=== PATIENT | female | born 1955 | race American Indian/Alaskan Native ===

== ENCOUNTER 2017-03-25 02:30 | Emergency (ER) | payer MEDICAID, OTHER ==
[2017-03-25 02:36] VITALS: BMI 25.0
--- NOTE | 2017-03-25 02:46 | ED PDOC ---
Arrival/HPI - General Chief Complaint: Back Pain Time Seen by Provider: 03/25/17 02:43 Historian: Patient - History of Present Illness Narrative History of Present Illness (Text): 03/25/17 02:46 Taya Guzman is a 61 year old female, whose past medical history includes tubal ligation, UTI, hypertension, and asthma, who presents to the Emergency department complaining of waking from sleep with suprapubic discomfort tonight. Patient reports associated dysuria. Patient denies any fever, chills, chest pain , shortness of breath, nausea, vomiting, diarrhea, neck pain, headache, dizziness, or any other complaints. Symptom Onset: Gradual Symptom Course: Unchanged Activities at Onset: Light Context: Home Past Medical History - Provider Review Nursing Documentation Reviewed: Yes - Infectious Disease Hx of Infectious Diseases: None - Tetanus Immunization Tetanus Immunization: Up to Date - Past Medical History Past Medical History: No Previous - Cardiac Hx Pacemaker: No - Pulmonary Hx Respiratory Disorders: Yes Hx Asthma: Yes - Neurological Hx Paralysis: No - HEENT Hx HEENT Disorder: No Hx Blind: No Hx Cataracts: No Hx Deafness: No Hx Difficulty Chewing: No Hx Epistaxis: No Hx Glaucoma: No Hx Macular Degeneration: No - Renal Hx Renal Failure: No - Endocrine/Metabolic Hx Hyperthyroidism: No Hx Hypothyroidism: No - Hematological/Oncological Hx Blood Transfusions: No Hx Blood Transfusion Reaction: No - Integumentary Hx Dermatological Disorder: No Hx Basal Cell Carcinoma: No Hx Eczema: No Hx Melanoma: No Hx Psoriasis: No Hx Squamous Cell Carcinoma: No - Musculoskeletal/Rheumatological Hx Musculoskeletal Disorders: Yes - Gastrointestinal Hx Crohn's Disease: No Hx Diverticulitis: No Hx Gastroesophageal Reflux: No Hx Gastrointestinal Ulcer: No Hx Liver Failure: No - Genitourinary/Gynecological Hx Sexually Transmitted Diseases: No - Psychiatric Hx Emotional Abuse: No Hx Physical Abuse: No Hx Substance Use: No - Past Surgical History Past Surgical History: No Previous - Surgical History Hx Amputation: No Hx Appendectomy: No Hx Cardiac Catheterization: No Hx Cholecystectomy: No Hx Coronary Stent: No Hx Gastric Bypass Surgery: No Hx Hysterectomy: No Hx Joint Replacement: No Hx Kidney Transplant: No Hx Liver Transplant: No Hx Mastectomy: No Hx Open Heart Surgery: No Hx Orthopedic Surgery: No Hx Splenectomy: No Hx Tubal Ligation: Yes Hx Valve Replacement: No - Anesthesia Hx Anesthesia Reactions: No Hx Malignant Hyperthermia: No - Suicidal Assessment Feels Threatened In Home Enviroment: No Family/Social History - Physician Review Nursing Documentation Reviewed: Yes Family/Social History: Unknown Family HX Smoking Status: Light Smoker < 10 Cigarettes Daily Hx Alcohol Use: Yes (QUIT 10 WEEKS AGO; PAST USE EXCESSIVE) Hx Substance Use: No Substance used: Cocaine Hx Substance Use Treatment: No Allergies/Home Meds Allergies/Adverse Reactions: Allergies Sulfa (Sulfonamide Antibiotics) Allergy (Verified 07/26/15 15:31) ANAPHYLAXIS terbinafine HCl [From Lamisil] Allergy (Verified 07/26/15 15:31) HEADACHE Home Medications: Home Meds Medication Instructions Recorded Confirmed Clonazepam 1 mg PO DAILY 12/31/14 03/25/17 Tramadol HCl [Ultram] 25 mg PO Q8H PRN 07/26/15 03/25/17 Acetaminophen with Codeine 1 each PO PRN PRN 01/09/16 03/25/17 [Tylenol with Codeine #3 Tablet] Metoprolol Tartrate [Lopressor] 50 mg PO BID 01/09/16 03/25/17 Review of Systems - Physician Review All systems were reviewed & negative as marked: Yes - Review of Systems Constitutional: Normal. absent: Fevers Eyes: Normal ENT: Normal Respiratory: Normal. absent: SOB, Cough Cardiovascular: Normal. absent: Chest Pain Gastrointestinal: Abdominal Pain (+suprapubic discomfort). absent: Diarrhea Genitourinary Female: Dysuria. absent: Frequency, Hematuria, Urine Output Changes Musculoskeletal: Normal. absent: Back Pain, Neck Pain Skin: Normal. absent: Rash Neurological: Normal. absent: Headache, Dizziness Endocrine: Normal Hemo/Lymphatic: Normal Psychiatric: Normal Physical Exam Vital Signs Reviewed: Yes Vital Signs Temp Pulse Resp BP Pulse Ox 03/25/17 04:00 98.2 F 76 18 132/82 100 03/25/17 02:39 85 20 132/98 H 99 Temperature: Afebrile Blood Pressure: Normal Pulse: Regular Respiratory Rate: Normal Appearance: Positive for: Well-Appearing, Non-Toxic, Comfortable Pain Distress: None Mental Status: Positive for: Alert and Oriented X 3 - Systems Exam Head: Present: Atraumatic, Normocephalic Pupils: Present: PERRL Extroacular Muscles: Present: EOMI Conjunctiva: Present: Normal Mouth: Present: Moist Mucous Membranes Neck: Present: Normal Range of Motion Respiratory/Chest: Present: Clear to Auscultation, Good Air Exchange. No: Respiratory Distress, Accessory Muscle Use Cardiovascular: Present: Regular Rate and Rhythm, Normal S1, S2. No: Murmurs Abdomen: Present: Normal Bowel Sounds. No: Tenderness, Distention, Peritoneal Signs Back: Present: Normal Inspection. No: CVA Tenderness, Midline Tenderness, Paraspinal Tenderness Upper Extremity: Present: Normal Inspection. No: Cyanosis, Edema Lower Extremity: Present: Normal Inspection. No: Edema Neurological: Present: GCS=15, CN II-XII Intact, Speech Normal Skin: Present: Warm, Dry, Normal Color. No: Rashes Psychiatric: Present: Alert, Oriented x 3, Normal Insight, Normal Concentration Medical Decision Making ED Course and Treatment: 03/25/17 02:46 Impression: 61 year old female complaining of suprapubic discomfort and dysuria tonight Differential Diagnosis included but are not limited to: UTI Plan: -- Labs, lipase -- Urinalysis, urine cultures -- Reassess and disposition Prior Visits: Notes and results from previous visits were reviewed. On 10/11/2015, pt was seen in the Emergency department for anxiety, requesting anxiety medication refill. Pt was eloped from ER. Progress Notes: 03/25/17 04:20 On reevaluation the patient feels better and is in no acute distress. I have discussed the results and plan with the patient, who expresses understanding. Patient given the opportunity to ask question, all questions were answered and there is agreement with the plan to discharge the patient home. Patient is stable for discharge. Patient was instructed to follow up with physician/clinic in 1-2 days or return if symptoms persist/worsen or new concerning symptoms arise. - Lab Interpretations Lab Results: 03/25/17 02:50 03/25/17 02:50 Lab Results 03/25/17 02:50: WBC 8.2 D, RBC 4.20, Hgb 12.8, Hct 38.4, MCV 91.4, MCH 30.5, MCHC 33.3, RDW 13.2, Plt Count 375, MPV 9.7 03/25/17 02:50: Sodium 138, Potassium 3.5 L, Chloride 104, Carbon Dioxide 26, Anion Gap 12, BUN 13, Creatinine 1.0, Est GFR ( Amer) > 60, Est GFR (Non- Af Amer) 57, Random Glucose 96, Calcium 10.0, Total Bilirubin 0.7, AST 35, ALT 36, Alkaline Phosphatase 75, Total Protein 7.6, Albumin 4.3, Globulin 3.3, Albumin/Globulin Ratio 1.3, Lipase 175 03/25/17 02:42: Urine Color Yellow, Urine Appearance Sl cloudy, Urine pH 6.0, Ur Specific [place] <= 1.005, Urine Protein Negative, Urine Glucose (UA) Negative, Urine Ketones Negative, Urine Blood Large H, Urine Nitrate Positive H , Urine Bilirubin Negative, Urine Urobilinogen 0.2, Ur Leukocyte Esterase Large H, Urine RBC 2 - 5, Urine WBC 15 - 20, Ur Epithelial Cells 0 - 2, Urine Bacteria Mod I have reviewed the lab results: Yes - Medication Orders Current Medication Orders: Discontinued Medications Ceftriaxone Sodium (Rocephin 1 Gram Ivpb) 1 gm in 100 mls @ 200 mls/hr IV ONCE STA PRN Reason: Protocol Stop: 03/25/17 04:39 Ketorolac Tromethamine (Toradol) 30 mg IVP ONCE ONE Stop: 03/25/17 03:00 Last Admin: 03/25/17 03:12 Dose: 30 mg MAR Pain Assessment Document 03/25/17 03:12 AB (Rec: 03/25/17 03:14 [id number]) Pain Reassessment Is this a pain reassessment? Yes Sleep Is patient sleeping during reassessment? No Presence of Pain Presence of Pain Yes Pain Scale Used Pain Scale Used Numeric Location Upper or Lower Lower Pain Location Body Site Abdomen Description Description Constant Intensity of Pain at present 7 Pain Behavior Guarding Irritability Aggravating Factors ADL's Alleviating Factors/Management Medication Techniques Alleviating Factors Medication IVP Administration Document 03/25/17 03:12 AB (Rec: 03/25/17 03:14 [id number]) Charges for Administration # of IVP Administrations 1 - Scribe Statement The provider has reviewed the documentation as recorded by the Sina Diaz Provider Scribe Attestation: All medical record entries made by the Scribe were at my direction and personally dictated by me. I have reviewed the chart and agree that the record accurately reflects my personal performance of the history, physical exam, medical decision making, and the department course for this patient. I have also personally directed, reviewed, and agree with the discharge instructions and disposition. Disposition/Present on Arrival - Present on Arrival Any Indicators Present on Arrival: No History of DVT/PE: No History of Uncontrolled Diabetes: No Urinary Catheter: No History of Decub. Ulcer: No History Surgical Site Infection Following: None - Disposition Have Diagnosis and Disposition been Completed?: Yes Diagnosis: UTI (urinary tract infection) Disposition: HOME/ ROUTINE Disposition Time: 04:20 Patient Plan: Discharge Patient Problems: Current Active Problems Problem Status Onset UTI (urinary tract infection) Acute Condition: GOOD Discharge Instructions (ExitCare): Urinary Tract Infection in Women (ED) Additional Instructions: Drink plenty of liquids/take meds as prescribed/follow up with your doctor this week Prescriptions: Cephalexin [cephalexin] 500 mg PO BID #10 cap Phenazopyridine [Pyridium] 200 mg PO TID #15 tab Tramadol HCl [Ultram] 50 mg PO Q6 PRN #12 tab PRN Reason: Pain, Moderate (4-7) Forms: [facility] (Maori)
[2017-03-25 02:55] LABS: URINE BILIRUBIN NEGATIVE (NEGATIVE); URINE BLOOD LARGE (NEGATIVE); URINE GLUCOSE (UA) NEGATIVE (NEGATIVE); URINE KETONE NEGATIVE (NEGATIVE); URINE LEUKOCYTE ESTERASE LARGE Leu/uL (NEGATIVE); URINE PROTEIN NEGATIVE mg/dL (<30 mg/dL); URINE UROBILINOGEN 0.2 E.U./dL (<1 E.U./dL)
[2017-03-25 02:58] LABS: URINE APPEARANCE SL CLOUDY (CLEAR); URINE COLOR YELLOW (YELLOW)
[2017-03-25 03:16] LABS: URINE BACTERIA MOD (NEG); URINE EPITHELIAL CELLS 0 - 2 /hpf (0-5); URINE WBC 15 - 20 /hpf (0-6)
[2017-03-25 03:16] LABS: ALB/GLOB RATIO 1.3 (1.1-1.8); ALKALINE PHOSPHATASE 75 U/L (38-126); ALT/SGPT 36 U/L (7-56); AST/SGOT 35 U/L (14-36); BILIRUBIN,TOTAL 0.7 mg/dL (0.2-1.3); BLOOD UREA NITROGEN 13 mg/dL (7-21); CARBON DIOXIDE 26 mmol/L (21-33); CHLORIDE 104 mmol/L (98-107); GFR AFRICAN-AMERICAN > 60; GLUCOSE,RANDOM 96 mg/dL (70-110); LIPASE 175 U/L (23-300); POTASSIUM 3.5 mmol/L (3.6-5.0); SODIUM 138 mmol/L (132-148); TOTAL PROTEIN 7.6 g/dL (5.8-8.3)
[2017-03-25 03:24] LABS: HEMATOCRIT 38.4 % (36.0-48.0); MEAN CELL VOLUME 91.4 fl (80.0-105.0); MEAN CORPUSCULAR HEMOGLOBIN 30.5 pg (25.0-35.0); MEAN CORPUSCULAR HGB CONC 33.3 g/dl (31.0-37.0); MEAN PLATELET VOLUME 9.7 fl (7.0-11.0); RED CELL DISTRIBUTION WIDTH 13.2 % (11.5-14.5); WHITE BLOOD COUNT 8.2 10^3/ul (4.5-11.0)
[2017-03-25 04:03] VITALS: O2SAT 100
[2017-03-25] MEDS ORDERED: cefTRIAXone 1 gm 1 GM/100 ML BAG IV STA (04:10)
[2017-03-25 05:16] VITALS: BP 142/80; PULSE 80; RESP 19; TEMP 98.7
== END 2017-03-25 05:15 | disposition home or self-care (01) ==
LOC: ED 02:30
DX: N39.0 Urinary tract infection, site not specified (principal)
CPT/HCPCS: 80053; 81001; 83690; 85027; 87086; 87181; 96365; 96375; 99283; J0696; J1885

== ENCOUNTER 2018-02-02 09:21 | Emergency (ER) | payer OTHER ==
[2018-02-02 09:22] VITALS: BMI 25.0
== END 2018-02-02 10:37 | disposition left against medical advice (07) ==
LOC: ED 09:21
DX: Z02.89 Encounter for other administrative examinations (principal); N39.0 Urinary tract infection, site not specified

== ENCOUNTER 2018-02-14 15:49 | Emergency (ER) | payer OTHER ==
[2018-02-14 15:50] VITALS: BMI 25.0
[2018-02-14 16:03] VITALS: RESP 18
--- NOTE | 2018-02-14 17:18 | ED PDOC ---
Arrival/HPI - General Historian: Patient, Family - History of Present Illness Narrative History of Present Illness (Text): 02/14/18 17:16 62 yo F with PMHx of HTN, hx of substance abuse, anxiety/depression, migraines, asthma presenting to the ED for high blood pressure. Patient states that her SBP typically runs in the 140s but that this morning it was in the 200s when read at home. She took her normal regimen of BP meds (metoprolol, HCTZ) plus 1/2 extra tablet of metoprolol, re-measured her BP with SBP in the 180s. Patient denies any chest pain, had 1 episode of palpitations when the veneer gluer arrived. She also endorses headache and worsening blurry vision earlier today. Denies fevers/chills, dizziness, chest pain, palpitations currently, sob, cough, abdominal pain, n/v/d/c, dysuria, or changes in stool. PMHx: anxiety/depression, hx substance abuse, HTN, migraines, asthma PSHx: tubal ligation Allergies: Sulfa, terbinafine Home Medications: as per chart Social Hx: + tobacco--2 cigs/day for many years; hx alcohol use-quit 10 months ago, hx crack cocaine use-last used in November FHx: unknown PMD: Dr. Lyn Time/Duration: 4-6 hours Symptom Onset: Sudden Symptom Course: Unchanged Activities at Onset: Light <Marcin Holloway - Last Filed: 02/14/18 18:52> <Basil Potts - Last Filed: 02/15/18 07:10> - General Chief Complaint: High Blood Pressure Time Seen by Provider: 02/14/18 15:53 Past Medical History - Provider Review Nursing Documentation Reviewed: Yes - Infectious Disease Hx of Infectious Diseases: None - Tetanus Immunization Tetanus Immunization: Up to Date - Past Medical History Past Medical History: No Previous - Cardiac Hx Hypertension: Yes Hx Pacemaker: No - Pulmonary Hx Respiratory Disorders: Yes Hx Asthma: Yes - Neurological Hx Paralysis: No - HEENT Hx HEENT Disorder: No Hx Blind: No Hx Cataracts: No Hx Deafness: No Hx Difficulty Chewing: No Hx Epistaxis: No Hx Glaucoma: No Hx Macular Degeneration: No - Renal Hx Renal Failure: No - Endocrine/Metabolic Hx Hyperthyroidism: No Hx Hypothyroidism: No - Hematological/Oncological Hx Blood Transfusions: No Hx Blood Transfusion Reaction: No - Integumentary Hx Dermatological Disorder: No Hx Basal Cell Carcinoma: No Hx Eczema: No Hx Melanoma: No Hx Psoriasis: No Hx Squamous Cell Carcinoma: No - Musculoskeletal/Rheumatological Hx Musculoskeletal Disorders: Yes - Gastrointestinal Hx Crohn's Disease: No Hx Diverticulitis: No Hx Gastroesophageal Reflux: No Hx Gastrointestinal Ulcer: No Hx Liver Failure: No - Genitourinary/Gynecological Hx Sexually Transmitted Diseases: No - Psychiatric Hx Emotional Abuse: No Hx Physical Abuse: No Hx Substance Use: No - Past Surgical History Past Surgical History: No Previous - Surgical History Hx Amputation: No Hx Appendectomy: No Hx Cardiac Catheterization: No Hx Cholecystectomy: No Hx Coronary Stent: No Hx Gastric Bypass Surgery: No Hx Hysterectomy: No Hx Joint Replacement: No Hx Kidney Transplant: No Hx Liver Transplant: No Hx Mastectomy: No Hx Open Heart Surgery: No Hx Orthopedic Surgery: No Hx Splenectomy: No Hx Tubal Ligation: Yes Hx Valve Replacement: No - Anesthesia Hx Anesthesia Reactions: No Hx Malignant Hyperthermia: No - Suicidal Assessment Feels Threatened In Home Enviroment: No <Marcin Holloway - Last Filed: 02/14/18 18:52> Family/Social History - Physician Review Nursing Documentation Reviewed: Yes Family/Social History: Unknown Family HX Smoking Status: Light Smoker < 10 Cigarettes Daily Hx Alcohol Use: Yes (QUIT 10 WEEKS AGO; PAST USE EXCESSIVE) Hx Substance Use: No Substance used: Cocaine Hx Substance Use Treatment: No <Marcin Holloway - Last Filed: 02/14/18 18:52> Allergies/Home Meds <Marcin Holloway - Last Filed: 02/14/18 18:52> <Basil Potts - Last Filed: 02/15/18 07:10> Allergies/Adverse Reactions: Allergies Sulfa (Sulfonamide Antibiotics) Allergy (Verified 02/14/18 15:58) ANAPHYLAXIS terbinafine HCl [From Lamisil] Allergy (Verified 02/14/18 15:58) HEADACHE Home Medications: Home Meds Medication Instructions Recorded Confirmed RX: Clonazepam 1 mg PO DAILY 12/31/14 02/14/18 Metoprolol Tartrate [Lopressor] 50 mg PO BID 01/09/16 02/14/18 Review of Systems - Review of Systems Constitutional: Normal Eyes: Vision Changes (chronic blurry vision) ENT: Normal Respiratory: Normal. absent: SOB, Cough, Sputum, Wheezing Cardiovascular: Palpitations. absent: Chest Pain, Edema, Calf Pain, GURERA, Orthopnea, Syncope Gastrointestinal: Normal. absent: Abdominal Pain, Constipation, Diarrhea, Nausea, Vomiting Genitourinary Female: Normal Musculoskeletal: Arthralgias (L scapular tenderness), Back Pain (chronic). absent: Neck Pain, Joint Swelling Skin: Normal Neurological: Headache (hx migraines). absent: Dizziness, Focal Weakness, Speech Changes Endocrine: Normal Hemo/Lymphatic: Normal Psychiatric: Anxiety, Depression <Marcin Holloway - Last Filed: 02/14/18 18:52> Physical Exam Vital Signs Reviewed: Yes Vital Signs Temp Pulse Resp BP Pulse Ox 02/14/18 15:55 98.3 F 81 18 167/102 H 99 Temperature: Afebrile Blood Pressure: Hypertensive Pulse: Regular Respiratory Rate: Normal Appearance: Positive for: Well-Appearing, Non-Toxic, Comfortable Pain Distress: None Mental Status: Positive for: Alert and Oriented X 3 - Systems Exam Head: Present: Atraumatic, Normocephalic Pupils: Present: PERRL Extroacular Muscles: Present: EOMI Conjunctiva: Present: Normal Mouth: Present: Moist Mucous Membranes Neck: Present: Normal Range of Motion Respiratory/Chest: Present: Clear to Auscultation, Good Air Exchange. No: Respiratory Distress, Accessory Muscle Use, Wheezes, Rales, Rhonchi Cardiovascular: Present: Regular Rate and Rhythm, Normal S1, S2. No: Murmurs Abdomen: Present: Normal Bowel Sounds. No: Tenderness, Distention, Peritoneal Signs, Rebound, Guarding, Mass/Organomegaly Back: Present: Normal Inspection, Paraspinal Tenderness (TTP along L scapular region). No: CVA Tenderness, Midline Tenderness Upper Extremity: Present: Normal Inspection, Normal ROM, NORMAL PULSES, Capillary Refill < 2s. No: Cyanosis, Edema, Tenderness, Swelling, Erythema Lower Extremity: Present: Normal Inspection, NORMAL PULSES, Normal ROM, Capillary Refill < 2 s. No: Edema, CALF TENDERNESS, Cyanosis, Tenderness, Swelling, Erythema Neurological: Present: CN II-XII Intact, Speech Normal Skin: Present: Warm, Dry, Normal Color. No: Rashes Psychiatric: Present: Alert, Oriented x 3, Normal Insight, Normal Concentration, Anxious <Marcin Holloway - Last Filed: 02/14/18 18:52> Vital Signs Temp Pulse Resp BP Pulse Ox 02/14/18 18:57 98.6 F 88 18 167/89 H 99 02/14/18 17:50 98.6 F 78 18 169/90 H 98 02/14/18 15:55 98.3 F 81 18 167/102 H 99 <Basil Potts - Last Filed: 02/15/18 07:10> Medical Decision Making ED Course and Treatment: 02/14/18 17:43 Impression: 62 yo F with PMHx of anxiety/depression, HTN, hx substance abuse, migraines, presenting to ED with elevated blood pressure and episode of palpitations Plan: --CBC, CMP --Trop --EKG --CXR --UA --UDS --monitor and disposition 02/14/18 18:39 Patient re-examined, resting comfortably, talkative, in good spirits Denies any chest pain, palpitations, sob - RAD Interpretation Narrative RAD Interpretations (Text): 02/14/18 18:26 CXR: no acute findings Radiology Orders: 02/14/18 17:09 CHEST PORTABLE [RAD] Stat Mule Developer: ED Physician - EKG Interpretation EKG Interpretation (Text): 02/14/18 18:47 NSR @ 79 bpm, no STEMI Interpreted by ED Physician: Yes Type: 12 lead EKG <Marcin Holloway - Last Filed: 02/14/18 18:52> - Lab Interpretations Lab Results: 02/14/18 17:38 02/14/18 17:38 Lab Results 02/14/18 17:38: Urine Opiates Screen Negative, Urine Methadone Screen Negative, Ur Barbiturates Screen Negative, Ur Phencyclidine Scrn Negative, Ur Amphetamines Screen Negative, U Benzodiazepines Scrn Negative, U Oth Cocaine Metabols Negative, U Cannabinoids Screen Negative 02/14/18 17:38: Sodium 141, Potassium 4.5, Chloride 105, Carbon Dioxide 26, Anion Gap 15, BUN 17, Creatinine 0.8, Est GFR ( Amer) > 60, Est GFR (Non- Af Amer) > 60, Random Glucose 126 H, Calcium 10.0, Phosphorus 3.6, Magnesium 2.1, Total Bilirubin 0.5, AST 145 H D, ALT 52, Alkaline Phosphatase 101, Troponin I < 0.01, NT-Pro-B Natriuret Pep 325, Total Protein 8.5 H, Albumin 4.7, Globulin 3.8, Albumin/Globulin Ratio 1.2, Lipase 168 02/14/18 17:38: Urine Color Yellow, Urine Appearance Clear, Urine pH 6.0, Ur Specific [place] <= 1.005, Urine Protein Negative, Urine Glucose (UA) Negative, Urine Ketones Negative, Urine Blood Small H, Urine Nitrate Negative, Urine Bilirubin Negative, Urine Urobilinogen 0.2, Ur Leukocyte Esterase Negative, Urine RBC 10 - 15, Urine WBC 2 - 5, Ur Epithelial Cells 10 - 12 02/14/18 17:38: WBC 6.9, RBC 4.42, Hgb 13.6, Hct 40.2, MCV 91.0, MCH 30.8, MCHC 33.8, RDW 13.5, Plt Count 401, MPV 9.8, Gran % 86.7 H, Lymph % (Auto) 12.2 L, [place] % (Auto) 1.0, Eos % (Auto) 0.0 L, Baso % (Auto) 0.1, Gran # 5.97, Lymph # (Auto) 0.8 L, [place] # (Auto) 0.1, Eos # (Auto) 0.0, Baso # (Auto) 0.01 - RAD Interpretation Radiology Orders: 02/14/18 17:09 CHEST PORTABLE [RAD] Stat <Basil Potts - Last Filed: 02/15/18 07:10> - PA / NET LEAD DEVELOPER / Resident Statement NILDA has reviewed & agrees with the documentation as recorded. NILDA has examined the patient and agrees with the treatment plan. <Basil Potts - Last Filed: 02/15/18 07:10> Disposition/Present on Arrival - Present on Arrival Any Indicators Present on Arrival: No History of DVT/PE: No History of Uncontrolled Diabetes: No Urinary Catheter: No History of Decub. Ulcer: No History Surgical Site Infection Following: None - Disposition Have Diagnosis and Disposition been Completed?: Yes Disposition Time: 18:47 Patient Plan: Discharge <Marcin Holloway - Last Filed: 02/14/18 18:52> <Basil Potts - Last Filed: 02/15/18 07:10> - Disposition Diagnosis: Benign hypertension, Hypertension Disposition: HOME/ ROUTINE Condition: STABLE Discharge Instructions (ExitCare): High Blood Pressure (DC), Controlling Your Blood Pressure Through Lifestyle, High Blood Pressure Emergencies, Malignant Hypertension (DC) Additional Instructions: ALYSE PANDYA, thank you for letting us take care of you today. Your provider was Basil Potts MD and you were treated for HYPERTENSION. The emergency medical care you received today was directed at your acute symptoms. If you were prescribed any medication, please fill it and take as directed. It may take several days for your symptoms to resolve. Return to the Emergency Department if your symptoms worsen, do not improve, or if you have any other problems. Please contact your doctor or call one of the physicians/clinics you have been referred to that are listed on the Patient Visit Information form that is included in your discharge packet. Bring any paperwork you were given at discharge with you along with any medications you are taking to your follow up visit. Our treatment cannot replace ongoing medical care by a primary care provider outside of the emergency department. Thank you for allowing the [facility] team to be part of your care today. Please follow up with primary care doctor for continued care and management of hypertension. Referral has also been provided for a An/Syq 13 Nav/C2 Operator. If symptoms worsen, please return to ED. Referrals: Gail Lyn MD [Staff Provider] - Follow up with primary José Miguel Treadwell MD [Staff Provider] - Follow up with primary Forms: [employer] (Turkmen)
[2018-02-14 18:06] LABS: BASO # 0.01 K/mm3 (0.0-2.0); BASO % 0.1 % (0.0-3.0); GRAN # 5.97 (1.4-6.5); GRAN % 86.7 % (50.0-68.0); HEMOGLOBIN 13.6 g/dL (12.0-16.0); LYMPH # 0.8 (1.2-3.4); LYMPH % 12.2 % (22.0-35.0); MEAN CORPUSCULAR HEMOGLOBIN 30.8 pg (25.0-35.0); MEAN CORPUSCULAR HGB CONC 33.8 g/dl (31.0-37.0); MEAN PLATELET VOLUME 9.8 fl (7.0-11.0); MONO # 0.1 (0.1-0.6); RBC 4.42 10^6/uL (3.5-6.1); RED CELL DISTRIBUTION WIDTH 13.5 % (11.5-14.5); URINE BILIRUBIN NEGATIVE (NEGATIVE); URINE BLOOD SMALL (NEGATIVE); URINE GLUCOSE (UA) NEGATIVE (NEGATIVE); URINE LEUKOCYTE ESTERASE NEGATIVE Leu/uL (NEGATIVE); URINE PROTEIN NEGATIVE mg/dL (<30 mg/dL); URINE UROBILINOGEN 0.2 E.U./dL (<1 E.U./dL); WHITE BLOOD COUNT 6.9 10^3/ul (4.5-11.0)
[2018-02-14 18:11] LABS: URINE APPEARANCE CLEAR (CLEAR); URINE COLOR YELLOW (YELLOW)
[2018-02-14 18:20] LABS: ALB/GLOB RATIO 1.2 (1.1-1.8); ALBUMIN 4.7 g/dL (3.0-4.8); ALT/SGPT 52 U/L (7-56); AST/SGOT 145 U/L (14-36); BLOOD UREA NITROGEN 17 mg/dL (7-21); GFR NON-AFRICAN AMERICAN > 60; LIPASE 168 U/L (23-300)
--- NOTE | 2018-02-14 18:23 | RAD ---
Date of service: 02/14/2018 HISTORY: chest pain COMPARISON: 11/18/2014 FINDINGS: LUNGS: No active pulmonary disease. PLEURA: No significant pleural effusion identified, no pneumothorax apparent. CARDIOVASCULAR: Normal. OSSEOUS STRUCTURES: No significant abnormalities. VISUALIZED UPPER ABDOMEN: Normal. OTHER FINDINGS: None. IMPRESSION: No active disease.
[2018-02-14 18:43] LABS: B-TYPE NATRIURETIC PEPTIDE 325 pg/mL (0-450); BARBITURATES, UR NEGATIVE (NEGATIVE); BENZODIAZEPINES, UR NEGATIVE (NEGATIVE); OPIATES, UR NEGATIVE (NEGATIVE); PHENCYCLIDINE, UR NEGATIVE (NEGATIVE); TROPONIN I < 0.01 ng/mL
[2018-02-14 18:56] VITALS: TEMP 98.6
[2018-02-14 18:58] VITALS: BP 167/89; PULSE 88; O2SAT 99
--- NOTE | 2018-02-15 15:26 | CARD ---
APPROVED REPORT Date of service: 02/14/2018 EKG Measurement Heart [id number] <Conclusion> Normal sinus rhythm Low voltage QRS Borderline ECG
== END 2018-02-14 18:57 | disposition home or self-care (01) ==
LOC: ED 15:49
DX: I10 Essential (primary) hypertension (principal); F41.9 Anxiety disorder, unspecified; F17.210 Nicotine dependence, cigarettes, uncomplicated
CPT/HCPCS: 71045; 80053; 81001; 83690; 83735; 83880; 84100; 84484; 85025; 93005; 99284; G0480

== ENCOUNTER 2018-09-14 08:03 | Outpatient (CLI) | payer OTHER | END 2018-09-14 08:04 | disposition home or self-care (01) | LOC: PAT 08:03 ==

== ENCOUNTER 2018-09-18 08:23 | Day surgery (SDC) | payer OTHER ==
[2018-09-14 08:36] VITALS: BMI 23.6
[2018-09-18] MEDS ORDERED: Propofol 10 mg/ml Inj (20 ML) ONE (10:33)
[2018-09-18] MEDS ORDERED: Midazolam 2 MG/2 ML VIAL ONE (10:33)
[2018-09-18] MEDS ORDERED: Bupivacaine 0.5% 50 ML IJ ONE (10:46)
[2018-09-18] MEDS ORDERED: Bupivacaine 0.5% Inj(30mL) IJ ONE (10:53)
[2018-09-18] MEDS ORDERED: HYDROmorphone 0.5 mg/0.5 ml ISec IVP PRN (11:25)
[2018-09-18] MEDS ORDERED: Lactated Ringer's 1,000 ML IV SCH (11:30)
--- NOTE | 2018-09-18 11:30 | PCM.SURG1 ---
Surgeon's Initial Post Op Note - Surgeon's Notes Surgeon: Dr. Shin Marking Machine Operator: Dr. Shin, Dr. 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 I: 20 cc of 0.5% marcaine plain, 4cc of platelet rich plasma. M: none Post-Operative Diagnosis: Same Operation Performed: Left foot radiofrequency nerve ablation with PRP injection Specimen/Specimens Removed: None Estimated Blood Loss: EBL {In ML}: 1 Blood Products Given: N/A Drains Used: No Drains Post-Op Condition: Good Date of Surgery/Procedure: 09/18/18 Time of Surgery/Procedure: 11:29
[2018-09-18 12:18] VITALS: RESP 18; TEMP 98.4; O2SAT 99
[2018-09-18 13:27] VITALS: BP 125/75; PULSE 69
--- NOTE | 2018-09-21 07:40 | OP ---
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 PROCEDURE PERFORMED: 1. Left foot radiofrequency nerve ablation of medial calcaneal nerve. 2. Platelet-rich plasma injection with ultrasound guidance. SURGEON: Dr. Shin. UPSTAIRS MAID: Cielo Reeves, PGY-1 ANESTHESIA: IV sedation with local block. INDICATIONS: The patient is a 63-year-old female with the above diagnosis. The patient has exhausted conservative treatment at this time and now requires surgical intervention. The patient signed the consent after careful explanation of risks, benefits, complications and alternatives to the surgical procedure. No guarantees were given nor implied. N.p.o. status was confirmed prior to taking the patient to the operating room. DESCRIPTION OF PROCEDURE: The patient was brought to the operating room and placed on the operating room table in the supine position. Time-out was performed for identification of the correct patient and procedure. After induction of IV sedation, the patient received a total of 20 mL of 0.5% Marcaine plain in a local block fashion to the left posterior tibial, medial calcaneal, and sural nerve. The left foot was then prepped in the normal sterile manner and the patient's procedure begun. No tourniquet was used during this procedure. Attention was directed to the left plantar heel where a 22-gauge radiofrequency needle was inserted percutaneously to the most painful area of the heel with impedance ranging from 500 to 600 ohms on the machine. At this time, radiofrequency electrodes were inserted into the radiofrequency needle. Power on the radiofrequency was then gradually increased to 2 V under the motor stimulation mode. The foot was then monitored for any signs of fasciculation. Once it was assured that the branches of the nerve identified were not a motor nerve, the radiofrequency unit was set to a leaning mode and lesioning of the nerve was performed at 90 degree Celsius for 90 seconds. This procedure was repeated at two other points in the plantar heel in the same manner as mentioned above. PROCEDURE 2: At this time, a total of 4 mL of PRP was injected in the left heel, localizing the area of the medial calcaneal tubercle and plantar fascia insertion with ultrasound guidance. The area was then cleaned and dressed with a large bandage. POSTOPERATIVE CONDITION: The patient tolerated anesthesia and procedure well and was escorted to the recovery room with all vital signs stable and neurovascular status intact to the left foot. The patient will be weightbearing as tolerated in the CAM boot and will follow up with Dr. Shin in office in three weeks. Cielo Leandro Barry Shin DPM MTDOctavio
== END 2018-09-18 13:20 | disposition home or self-care (01) ==
LOC: SDS 08:23
PROVIDERS: ATTEND Podiatrist Foot & Ankle Surgery
DX: M79.2 Neuralgia and neuritis, unspecified (principal); M72.2 Plantar fascial fibromatosis
CPT/HCPCS: 0232T; 64640